=== PATIENT | female | born 1930 | race Caucasian/White ===

== ENCOUNTER → 2017-05-21 | Outpatient (CLI) | payer OTHER ==
[2017-05-21 10:11] LABS: BASO % 0.3 %; BASO ABS # 0.02 K/uL (0-0.2); EOS % 1.3 %; EOS ABS # 0.09 K/uL (0-0.5); HEMATOCRIT 39.9 % (37-47); HEMOGLOBIN 13.4 g/dL (12.0-16.0); IG# 0.01 K/uL (0.00-0.02); LYMPH % 28.5 %; LYMPH ABS # 1.91 K/uL (1.2-3.4); MEAN CELL VOLUME 95.5 fL (80-100); MEAN CORPUSCULAR HEMOGLOBIN 32.1 pg (25-34); MEAN CORPUSCULAR HGB CONC 33.6 g/dl (32-36); MEAN PLATELET VOLUME 9.6 fL (7.4-10.4); MONO % 9.4 %; MONO ABS # 0.63 K/uL (0.11-0.59); NEUT % 60.4 %; NEUT ABS # 4.04 K/uL (1.4-6.5); PLATELET COUNT 131 K/uL (130-400); RED CELL DISTRIBUTION WIDTH CV 13.2 % (11.5-14.5); RED CELL DISTRIBUTION WIDTH SD 46.1 fL (36.4-46.3)
--- NOTE | 2017-05-21 10:16 | DIAGNOSTIC IMAGING REPORT ---
TWO VIEW CHEST CLINICAL HISTORY: +PPD. FINDINGS: PA and lateral chest radiographs are obtained. No prior studies are available for comparison at the time of dictation. The heart is top normal for projection. There is atherosclerotic calcification of the thoracic aorta. The pulmonary vasculature is noncongested. Nonspecific interstitial thickening is likely chronic. No airspace consolidation or pleural effusion is identified. There is no pneumothorax. The skeletal structures are osteopenic. 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 IMPRESSION: No active disease in the chest. Electronically signed by: Wilfrid Waddell M.D. 05/21/2017 10:14 AM Dictated Date/Time: 05/21/2017 10:13 AM
[2017-05-21 10:40] LABS: ALBUMIN 3.7 gm/dl (3.4-5.0); ALT/SGPT 27 U/L (12-78); BLOOD UREA NITROGEN 22 mg/dl (7-18); CARBON DIOXIDE 28 mmol/L (21-32); CHOLESTEROL 211 mg/dl (0-200); GLUCOSE 92 mg/dl (70-99); SODIUM 134 mmol/L (136-145)
[2017-05-21 10:50] LABS: ALKALINE PHOSPHATASE 57 U/L (45-117); AST/SGOT 18 U/L (15-37); LDL CHOLESTEROL CALCULATED 127 mg/dl; TOTAL PROTEIN 7.4 gm/dl (6.4-8.2)
== END | disposition home or self-care (01) ==
LOC: C.RAD 09:32
PROVIDERS: ATTEND Internal Medicine
DX: I10 Essential (primary) hypertension (principal); E03.9 Hypothyroidism, unspecified; R76.11 Nonspecific reaction to tuberculin skin test without active tuberculosis

== ENCOUNTER → 2017-10-29 | Outpatient (CLI) | payer OTHER ==
--- NOTE | 2017-10-29 16:23 | DIAGNOSTIC IMAGING REPORT ---
L HIP UNILATERAL 2 VIEWS HISTORY: 87 years-old Female WORSENING PAIN, NO INJURY chronic left hip pain without trauma COMPARISON: None available TECHNIQUE: 2 views of the left hip FINDINGS: Mild bone demineralization. Moderate left hip osteoarthritis. Imaged left hemipelvis appears intact. There is no acute fracture or dislocation. No avascular necrosis or opaque foreign body. IMPRESSION: No acute fracture or dislocation. The above report was generated using voice recognition software. It may contain grammatical, syntax or spelling errors. Electronically signed by: Randy Dacosta M.D. 10/29/2017 4:22 PM Dictated Date/Time: 10/29/2017 4:21 PM
== END | disposition home or self-care (01) ==
LOC: C.RAD 15:28
PROVIDERS: ATTEND Internal Medicine
DX: M25.552 Pain in left hip (principal)